=== PATIENT | female | born 1930 | race Caucasian/White ===

== ENCOUNTER 2017-01-06 05:09 | Inpatient (IN) | payer MEDICARE ==
[~2017-01-06] VITALS: Ht 154.9 cm; Wt 75.9 kg
--- NOTE | ~2017-01-06 | CN ---
PATIENT NAME:TREV SPANN MEDICAL RECORD: [id number] : 34 LOCATION:[id number] ADMIT DATE: 01/06/17 ACCOUNT: [id number] CONSULTING PHYSICIAN: JOVANA GRIMM MD REFERRING PHYSICIAN: ROSA M PERALTA MD DATE OF CONSULTATION: 01/07/2017 CONSULT REQUESTING PHYSICIAN: Rosa M Pearlta MD. REASON FOR CONSULTATION: Acute hypoxic respiratory failure, respiratory distress. HISTORY OF PRESENT ILLNESS: Ms. Spann is an 86-year-old female who was admitted yesterday with shortness of breath. The patient was discharged on the 03 of January after myocardial infarction. The patient has Alzheimer disease. The history was taken mainly by reviewing the patient's note and talking to the nursing staff. There is no immediate family member available. Early this morning, the patient becomes more distress which prompted the consult on admission. Her proBNP was 12,920 and she was also mildly hyponatremic with a sodium of 134. REVIEW OF SYSTEMS: Mainly in the history of present illness. PAST MEDICAL HISTORY: 1. Coronary artery with recent myocardial infarction. 2. Parkinson disease. 3. History of normal pressure hydrocephalus, status post SOCIAL MEDIA CAMPAIGN MANAGER shunt placement. 4. Osteoporosis. 5. Fatty liver. 6. Hypertension. 7. History of heart murmur. 8. History of atrial fibrillation. 9. Anxiety and depression. PAST SURGICAL HISTORY: 1. She has abdominal surgery times 3. 2. Breast surgery. 3. Tubal ligation. 4. Hysterectomy. 5. Tonsillectomy. 6. Bladder surgery. ALLERGIES: SHE IS ALLERGIC TO PENICILLIN, CODEINE. PRAVASTATIN AND RIVASTIGMINE. PRESENT MEDICATIONS: [employer] was reviewed. PERSONAL AND SOCIAL HISTORY: The patient is a nonsmoker, nondrinker. FAMILY HISTORY: Noncontributory. PHYSICAL EXAMINATION: GENERAL: Now, the patient is lying comfortably in bed. She is not in acute distress, she is wearing nasal cannula oxygen. VITAL SIGNS: The blood pressure 113/85, pulse is 73, respiration is 24, CONSULT REPORT [id number] TREV SPANN temperature 97.9, and SpO2 is 98% on nasal cannula. HEENT: Conjunctiva is pale. Sclerae nonicteric. NECK: Supple. There is elevated JVD. CHEST: There are bilateral crackles. No wheezing. HEART: Rate and rhythm is regular. There is a grade II/ systolic murmur. ABDOMEN: Soft. Bowel sounds present. No hepatosplenomegaly. RECTAL: Deferred. EXTREMITIES: No cyanosis, no clubbing, no pedal edema. SKIN: Warm, normal turgor. CENTRAL NERVOUS SYSTEM: The patient is awake and alert, but she is confused. LABORATORY DATA: CBC: WBC 16.3, hemoglobin 9.9, hematocrit 30.6, platelet count is 293. Chemistry: Sodium 136, potassium is 4.5, BUN is 42, creatinine is 2, glucose 118, ABG this morning, the pH was 7.20, pCO2 was 72 and pO2 was 243. Chest radiograph, there are bilateral bibasilar infiltrate. IMPRESSION: 1. Acute hypoxic hypercapnic respiratory failure. 2. Respiratory acidosis secondary to acute hypoxic hypercapnic respiratory failure. 3. Bilateral pneumonia, most likely hospital-acquired pneumonia with recent hospitalization. 4. Pulmonary edema with chronic diastolic congestive heart failure. 5. Coronary artery disease with recent myocardial infarction. 6. Parkinson disease. 7. Hypertension. 8. Alzheimer disease. RECOMMENDATION: 1. I will discontinue the Zithromax and start Levaquin, vancomycin and cefepime to cover from Gram-negative rods hospital-acquired pneumonia and MRSA. 2. Follow up labs and chest radiograph. Start on Lasix. 3. BiPAP as required. Continue all other home medications. Dr. Peralta, thank you for involving me in the care of Ms. Spann. Critical care time is 45 minutes. TRANSINT:[id number] Voice Confirmation ID: [id number] DOCUMENT ID: [id number] JOVANA GRIMM MD CC: ROSA M PERALTA MD [id number] DICTATION DATE: 01/07/17 1122 SAND DRIER: 01/07/17 1319 ADM IN [facility] [address] [place] [address]
[~2017-01-06 05:09] MED LIST: AMBIEN5 MG PO; ANTIVERT12.5 MG PO; ATIVAN0.5 MG; ATIVAN0.5 MG PO; BUPROPION XL300 MG PO; CARAFATE1 G PO; CATAPRES TTS-10.1 MG TD; CATAPRES0.1 MG PO; CELEXA10 MG PO; CLARITIN 10 MG10 MG PO; CLEOCIN HCL300 MG PO; COZAAR25 MG PO; DESYREL50 MG PO; DIFLUCAN150 MG PO; DILAUDID2 MG PO; DULCOLAX5 MG PO; DURAGESIC1 PATCH .7 TRANSDERM; FLUTICASONE PRO16 GM NASAL; HYDROCHLOROTH12.5 M1 PO; ISOSORBIDE MONO30 M1 PO; LACTINEX GRANUL1 PCK PO; LIDODERM 5 %1 PATCH TD; LOPRESSOR50 MG PO; LOTRIMIN10 ML TP; MAG-OX 400 MG400 MG PO; MELATONIN 3 MG1 TAB PO; MILK OF MAGNESI30 ML PO; MULTIPLE VITAMI1 TA1 PO; NAPROSYN500 MG PO; NATURAL SENNA8.6 MG PO; NEURONTIN 300300 MG; NORCO 10/325 TA1 TA1 PO; NORVASC10 MG PO; NORVASC5 MG PO; NYSTATIN-TRIAMC15 GM TP; NYSTATIN60 GM TP; PRAVACHOL40 MG PO; PRILOSEC20 MG PO; PROTEIN LIQUID30 ML PO; PROTONIX20 MG PO; PROTONIX40 MG PO; REQUIP0.5 MG PO; SENNA PLUS TA1 UDTAB PO; TUMS500 MG PO; VITAMIN D5000 UNIT PO; VITAMIN D50000 UNIT PO; WELLBUTRIN SR150 MG PO; ZANAFLEX2 M1 PO; ZOFRAN4 MG PO; ZYVOX600 MG
[2017-01-06 05:43] LABS: BASOPHILS 0.1 % (0-2); EOSINOPHILS 0.1 % (0-7); HEMATOCRIT 30.1 % (36.0-48.0); HEMOGLOBIN 9.5 g/dL (12-16); IMMATURE GRANULOCYTES 0.3 % (0-5); LYMPHOCYTES 6.3 % (15-50); MCH 30.6 pg (26.0-34.0); MCHC 31.6 g/dL (31.0-37.0); MCV 97.1 fL (80.0-100.0); MEAN PLATELET VOLUME 9.7 fL (7.4-10.4); MONOCYTES 4.4 % (2-11); NEUTROPHILS 88.8 % (40-80); PLATELET COUNT 272 10x3/uL (130-400); RDW 14.4 % (11.5-14.5); WBC 17.3 10x3/uL (4.8-10.8)
[2017-01-06 05:53] LABS: ALBUMIN 2.7 g/dL (3.4-5.0); BILIRUBIN - TOTAL 0.17 mg/dL (0.2-1.3); CALCIUM 8.5 mg/dL (8.5-10.1); CARBON DIOXIDE 27.9 mmol/L (21.0-32.0); POTASSIUM - SERUM 4.9 mmol/L (3.5-5.1); PROTEIN - SERUM 7.4 g/dL (6.4-8.2)
[2017-01-06 05:55] LABS: TROPONIN-I 0.028 ng/mL (0.000-0.060)
[2017-01-06 05:58] LABS: APPEARANCE CLEAR (CLEAR); BILIRUBIN NEGATIVE (NEGATIVE); COLOR YELLOW (YELLOW); GLUCOSE 50 mg/dL (NEGATIVE); KETONE NEGATIVE (NEGATIVE); LEUKOCYTE ESTERASE NEGATIVE (NEGATIVE); NITRITE NEGATIVE (NEGATIVE); PH 5.5 (5.0-6.0); PROTEIN 3+ mg/dL (NEGATIVE); SPECIFIC GRAVITY 1.015 (1.005-1.020); UROBILINOGEN NORMAL (NORMAL)
[2017-01-06 05:59] LABS: BACTERIA MODERATE /hpf (NONE SEEN); RED CELLS - URINE OCC /hpf (0-5); WHITE CELLS - URINE 0-5 /hpf (0-5)
[2017-01-06 06:00] LABS: AMORPHOUS SEDIMENT >1+ /lpf (NONE SEEN); GRANULAR CAST NONE SEEN /lpf (NONE SEEN); HYALINE CAST NONE SEEN /lpf (NONE SEEN); MUCUS NONE SEEN /lpf (NONE SEEN); RED CELL CAST NONE SEEN /lpf (NONE SEEN); SPERMATOZOA NONE SEEN /hpf (NONE SEEN); WAXY CAST NONE SEEN /lpf (NONE SEEN); YEAST NONE SEEN /hpf (NONE SEEN)
--- NOTE | 2017-01-06 07:00 | NUR ---
RECEIVED PT TO ROOM 2128, VIA STRETCHER, PT ORIENTED TO ROOM AND CALL LIGHT, VERY HARD OF HEARING AND POOR HISTORIAN. WILL ASSESS PT AND START PLAN OF CARE.
[2017-01-06] MEDS ORDERED: ASPIRIN81 MG PO (07:51)
[2017-01-06] MEDS ORDERED: SENNA PLUS TA1 UDTAB PO (07:54)
[2017-01-06] MEDS ORDERED: REMERON15 MG PO (07:55)
[2017-01-06] MEDS ORDERED: ISOSORBIDE MONO30 M1 PO (07:57)
[2017-01-06] MEDS ORDERED: PLAVIX75 MG PO (07:57)
[2017-01-06] MEDS ORDERED: NITRO-DUR0.4 MG TRANSDERM (07:58)
[2017-01-06] MEDS ORDERED: METOPROLOL TART50 MG PO (08:00)
[2017-01-06] MEDS ORDERED: NORVASC10 MG PO (08:01)
[2017-01-06] MEDS ORDERED: AMBIEN5 MG PO (08:04)
[2017-01-06] MEDS ORDERED: MILK OF MAGNESI30 ML PO (08:07)
--- NOTE | 2017-01-06 10:25 | NUR ---
CALLED TO PT'S ROOM, BY LENS MOLD SETTER. PT STATED THAT SHE WAS SOB, AND THAT HER CHEST FELT HEAVY. REPOSITIONED PT WITH HELP OF LENS MOLD SETTER, CHECKED PT'S O2 AND IT WAS 98, ON 2L NC. ALSO DID AND EKG AND IT WAS 90 NORMAL SINUS RHYTHM NON SPECIFIC T WAVE ABNORMALITY. DR. MICHAEL PAGED, WAITING ON HER TO CALL BACK.
[2017-01-06 10:47] VITALS: BP 166/85; BMI 36.9
--- NOTE | 2017-01-06 11:57 | NUR ---
CHECKED ON PT. PT STATED THAT SHE CAN BREATH MUCH BETTER AND THAT HER CHEST DOES NOT FEEL HEAVY ANYMORE. SHE STATED "I AM A LITTLE ANXIOUS TODAY". NAD NOTED, CALL LIGHT IN REACH, WILL CONTINUE TO MONITOR.
[2017-01-06] MEDS ORDERED: ASPIRIN325 MG PO (12:31)
[2017-01-06] MEDS ORDERED: VITAMIN D250000 UNIT PO (12:33)
[2017-01-06] MEDS ORDERED: DIFLUCAN100 MG PO (12:38)
[2017-01-06] MEDS ORDERED: IPRAT-ALBUT 0.5-3 ML UPD (12:39)
[2017-01-06] MEDS ORDERED: FLORANEX / LACT1 TAB PO (12:40)
[2017-01-06] MEDS ORDERED: MYSOLINE 50 MG50 MG PO (12:43)
--- NOTE | 2017-01-06 13:13 | NUR ---
1300- CALLED DR. MICHAEL AND INFOMRED HER OF HIGH BP OF 194/95, AND THAT PT IS VERY ANXIOUS. DR. MICHAEL STATED TO RESTART BP MED AND ANXIETY MED.
[2017-01-06 13:20] VITALS: BP 194/95
--- NOTE | 2017-01-06 14:52 | NUR ---
0830- ASSESED PT AT THIS TIME. TWO NITRO PATCHES NOTED TO RT CHEST AREA, FENTANYL PATCH NOTED TO LT SHOULDER AREA, AND ANOTHER PATCH THAT LOOKS LIKE A NICOTINE PATCH NOTED TO RT SHOULDER AREA. EDEMA NOTED TO UPPER EXTREMITIES. BRUISES BILAT TO ARMS. NAD NOTED, CALL LIGHT IN REACH, NAD NOTED, WILL CONTINUE TO MONITOR.
--- NOTE | 2017-01-06 15:10 | NUR ---
SON AT BEDSIDE, REPOSITIONED PT IN BED, AND PROVIDED HER WITH A FAN. SCD'S ON BILAT, PT AND SON DENY ANY OTHER NEEDS AT THIS TIME. CALL LIGHT IN REACH, NAD NOTED, WILL CONTINUE TO MONITOR.
[2017-01-06 17:16] VITALS: BP 150/81
--- NOTE | 2017-01-06 17:37 | NUR ---
DR. PERALTA STATED TO GO AHEAD AND CHANGE PT'S FENTANYL PATCH NOW INSTEAD OF WAITING UNTIL TOMORROW, SINCE PT IS HAVING A LOT OF PAIN.
[2017-01-06 18:48] LABS: CKMB 1.8 U/L (0.0-3.6); CREATINE KINASE 50 UL (21-215); TROPONIN-I 0.039 ng/mL (0.000-0.060)
--- NOTE | 2017-01-06 19:14 | NUR ---
FENTANYL PATCH APPLIED TO LEFT SHOULDER, DATED AND INITIAL.
--- NOTE | 2017-01-06 19:32 | NUR ---
SHIFT ASSESSMENT COMPLETE. PATIENT RESTLESS AND CONFUSED TELEMETRY READING OF SINUS TACH AT 108 DIAPHORETIC WITH RESPIRATIONS AT 22 AND SHALLOW. O2 AT 3 LITERS IS OFF THE PATIENT FACE O2 SAT OF 80% REAPPLIED WITH RESPIRATORY AT BEDSIDE. BP 200/133 PATIENT IS C/O OF PAIN TO BACK. DURAGESIC PATCH APPLIED NOW WITH 0.1 MG CLONIDINE GIVEN ORAL. WILL MONITOR
[2017-01-06 20:34] VITALS: BP 215/116
[2017-01-06 23:34] VITALS: BP 177/79
[2017-01-07] VITALS (19 sets, daily range): BP systolic 94–161; BP diastolic 46–96; Ht 154.9 cm; Wt 75.9 kg
--- NOTE | 2017-01-07 00:08 | NUR ---
2030 PATINET IS VERY RESTLESS AND ANXIOUS ORAL MEDICATION GIVEN WITH ATIVAN GIVEN ORAL ORDERED.
[2017-01-07 00:50] LABS: CKMB 3.2 U/L (0.0-3.6); CREATINE KINASE 56 UL (21-215)
[2017-01-07 00:59] LABS: TROPONIN-I 0.076 ng/mL (0.000-0.060)
--- NOTE | 2017-01-07 02:32 | NUR ---
PATIENT SLEEPING QUIELTY WITH NO DISTRESS NOTED. VSS NO DISTRESS NOTED
--- NOTE | 2017-01-07 05:15 | NUR ---
PT REC'D TO ROOM 230 ON 14 LITER OXYMIZER, AWAKE AND ALERT, LEFT FOREARM PIV WITH LEVAQUIN INFUSING, RIGHT HAND PIV LEAKING, WILL D/C, GARCIA PATENT DRAINING CONCENTRATED URINE, CM-SR @ 74, BP STABLE, SR UP X 2, CALL LIGHT IN REACH.
--- NOTE | 2017-01-07 05:30 | NUR ---
RT AT BS FOR REPEAT ABG, PT COMPLAINS OF INABILITY TO BREATH, REQUESTING COOL AIR, THERMOSTAT ADJUSTED IN ROOM AND FAN PROVIDED, WILL CONT TO MONITOR FOR CHANGES.
--- NOTE | 2017-01-07 05:45 | NUR ---
PAGED REGARDING CONSULT.
--- NOTE | 2017-01-07 06:10 | NUR ---
NIKKI HINDS AT BS, UPDATE GIVEN AND QUESTIONS ANSWERED.
[2017-01-07 06:21] LABS: BASOPHILS 0.1 % (0-2); EOSINOPHILS 0.1 % (0-7); HEMATOCRIT 30.6 % (36.0-48.0); HEMOGLOBIN 9.9 g/dL (12-16); IMMATURE GRANULOCYTES 0.4 % (0-5); LYMPHOCYTES 6.8 % (15-50); MCH 31.4 pg (26.0-34.0); MCHC 32.4 g/dL (31.0-37.0); MCV 97.1 fL (80.0-100.0); MEAN PLATELET VOLUME 9.5 fL (7.4-10.4); MONOCYTES 5.9 % (2-11); NEUTROPHILS 86.7 % (40-80); PLATELET COUNT 293 10x3/uL (130-400); RBC 3.15 10x6/uL (4.00-5.40); RDW 14.3 % (11.5-14.5); WBC 16.2 10x3/uL (4.8-10.8)
--- NOTE | 2017-01-07 06:35 | NUR ---
PT COMPLAINS OF NAUSEA, 4MG ZOFRAN GIVEN SLOW IVP, FAMILY REMAINS AT BS, VSS, WILL CONT TO MONITOR
[2017-01-07 06:59] LABS: CALCIUM 8.6 mg/dL (8.5-10.1); CARBON DIOXIDE 29.5 mmol/L (21.0-32.0); CHLORIDE - SERUM 98 mmol/L (98-107); CKMB 4.3 U/L (0.0-3.6); CREATINE KINASE 60 UL (21-215); MAGNESIUM - SERUM 2.2 mg/dL (1.8-2.4); POTASSIUM - SERUM 4.5 mmol/L (3.5-5.1); PRO BNP 24717 pg/mL (0-450); SODIUM 136 mmol/L (136-145); UREA NITROGEN 42 mg/dL (7-18); eGFR NON AFRICAN AMERICAN 25 mL/min (90-120)
[2017-01-07 07:00] LABS: CALC OSMOLALITY 283 mosm/kg (275-300); GLUCOSE 118 mg/dL (74-106); TROPONIN-I 0.143 ng/mL (0.000-0.060)
--- NOTE | 2017-01-07 19:30 | NUR ---
ASSESSMENT COMPLETE. S1S2. PT AWAKE AND ALERT. ATTENTION SEEKING; ASKING TO MOVE FAN TOWARDS AND AWAY FROM SELF FREQUENTLY. VERBALLY DISRUPTIVE. NSR SHOWING ON MONITOR. RR DIMINISHED THROUGHOUT. PT C/O CHRONIC BACK PAIN. RADIAL AND PEDAL PULSE WEAK. SKIN PALE. 4L VIA OXYMIZER.
--- NOTE | 2017-01-07 21:00 | NUR ---
NO FAMILY AT VISITATION.
--- NOTE | 2017-01-07 23:45 | NUR ---
LEFT AC INFILTRATED; NOT VIABLE. DC'D WITH CATH INTACT.
[2017-01-08] VITALS (10 sets, daily range): BP systolic 116–148; BP diastolic 67–95
--- NOTE | 2017-01-08 00:10 | NUR ---
ATTEMPTED PIV X3 COULD NOT OBTAIN ACCESS.
--- NOTE | 2017-01-08 02:00 | NUR ---
PT RESTING; EYES CLOSED. VSS. NO DISTRESS NOTED. CALL LIGHT IN REACH. WILL CONTINUE TO MONITOR.
[2017-01-08 04:00] LABS: BASOPHILS 0.1 % (0-2); EOSINOPHILS 0.5 % (0-7); HEMATOCRIT 28.3 % (36.0-48.0); IMMATURE GRANULOCYTES 0.4 % (0-5); LYMPHOCYTES 10.2 % (15-50); MCH 30.7 pg (26.0-34.0); MCHC 31.8 g/dL (31.0-37.0); MCV 96.6 fL (80.0-100.0); MEAN PLATELET VOLUME 9.3 fL (7.4-10.4); MONOCYTES 7.2 % (2-11); NEUTROPHILS 81.6 % (40-80); PLATELET COUNT 261 10x3/uL (130-400); RBC 2.93 10x6/uL (4.00-5.40); RDW 14.1 % (11.5-14.5); WBC 14.6 10x3/uL (4.8-10.8)
[2017-01-08 04:16] LABS: ALBUMIN 2.6 g/dL (3.4-5.0); ANION GAP 13.7 mmol/L (8-16); BILIRUBIN - TOTAL 0.36 mg/dL (0.2-1.3); CALCIUM 8.4 mg/dL (8.5-10.1); CARBON DIOXIDE 28.1 mmol/L (21.0-32.0); CREATININE - SERUM 2.1 mg/dL (0.6-1.3); MAGNESIUM - SERUM 2.3 mg/dL (1.8-2.4); POTASSIUM - SERUM 4.8 mmol/L (3.5-5.1); PROTEIN - SERUM 6.9 g/dL (6.4-8.2)
--- NOTE | 2017-01-08 10:59 | NUR ---
1030-MID LINE PLACED BY VASCULAR NURSE. PT TALAT WELL. SPOKE TO DR UGARTE AND SPOKE TO PT'S SON PRIOR TO THAT AND PT'S SON STATES THAT PT IS A DNR. REC'D ORDER FROM DR UGARTE FOR PT TO BE A DNR.
--- NOTE | 2017-01-08 19:38 | NUR ---
ASSESSMENT COMPLETE, PT SOB, O2 AT 6 LITER VIA OXIMIZER. MIDLINE IV TO LEFT UPPER ARM WITH NS AT KVO. GARCIA DRAINING TO GRAVITY, PT DENIES NEEDS AT THIS TIME, BED LOW, CL IN REACH.
--- NOTE | 2017-01-08 21:46 | NUR ---
PT YELLING OUT, ENTERED ROOM, PT C/O PAIN TO BACK, MORPHINE 2 MG GIVEN TO LEFT FOREARM IV. WILL CONT TO MONITOR.
--- NOTE | 2017-01-08 22:36 | NUR ---
PT ASKING FOR SOMETHING TO HELP HER REST, AMBIEN 5 MG TAB GIVE.
--- NOTE | 2017-01-09 01:28 | NUR ---
RESTING WITH EYES CLOSED, RESPERATIONS EVEN, NO S/S DISTRESS NOTED.
[2017-01-09 03:31] VITALS: BP 136/84
--- NOTE | 2017-01-09 04:00 | NUR ---
HEALTH CLINICIAN AT BEDSIDE FOR VS. NEEDS ADDRESSED AT THIS TIME. CALL LIGHT IN REACH. WILL CONT TO MONITOR.
--- NOTE | 2017-01-09 04:44 | NUR ---
MORPHINE 2 MG GIVEN FOR C/O PAIN TO BACK, RATES PAIN AT A 6 ON PAIN SCALE. REPOSITIONED IN BED TO LEFT SIDE, PLACED PILLOW BEHIND RIGHT SIDE OF BACK. BED LOW, CL IN REACH.
[2017-01-09 05:11] LABS: BASOPHILS 0.1 % (0-2); EOSINOPHILS 0.5 % (0-7); HEMATOCRIT 31.6 % (36.0-48.0); HEMOGLOBIN 10.1 g/dL (12-16); LYMPHOCYTES 20.1 % (15-50); MCV 96.9 fL (80.0-100.0); MEAN PLATELET VOLUME 9.7 fL (7.4-10.4); MONOCYTES 5.4 % (2-11); NEUTROPHILS 72.9 % (40-80); PLATELET COUNT 276 10x3/uL (130-400); RBC 3.26 10x6/uL (4.00-5.40); RDW 14.3 % (11.5-14.5); WBC 14.7 10x3/uL (4.8-10.8)
[2017-01-09 05:33] LABS: ALBUMIN 2.7 g/dL (3.4-5.0); ANION GAP 12.6 mmol/L (8-16); BILIRUBIN - TOTAL 0.4 mg/dL (0.2-1.3); CALCIUM 8.9 mg/dL (8.5-10.1); CARBON DIOXIDE 27.2 mmol/L (21.0-32.0); CREATININE - SERUM 2.3 mg/dL (0.6-1.3); MAGNESIUM - SERUM 2.3 mg/dL (1.8-2.4); POTASSIUM - SERUM 4.8 mmol/L (3.5-5.1); PROTEIN - SERUM 6.6 g/dL (6.4-8.2); VANCOMYCIN - RANDOM 14.3 ug/mL (10.0-20.0)
--- NOTE | 2017-01-09 07:15 | NUR ---
PT SITTING UP IN BED SLEEPING NO S/S DISTRESS RR EVEN AND REGULAR. WILL CONT TO MONITOR
[2017-01-09 08:00] VITALS: BP 127/50
--- NOTE | 2017-01-09 08:13 | NUR ---
PT IS VERY LETHARGIC AND WILL NOT WAKE UP TO TAKE HER AM MEDICATIONS. PT DID OPEN HER EYES BUT WENT RIGHT BACK TO SLEEP.
--- NOTE | 2017-01-09 11:31 | EC ---
PATIENT:TREV AL DATE OF SERVICE: 01/06/17 SEX: F MEDICAL RECORD: [id number] DATE OF : 32 LOCATION:D.M2 D.212 AGE OF PATIENT: 86 ADMISSION DATE: 01/06/17 REFERRING PHYSICIAN: INTERPRETING PHYSICIAN: JAZLYN HERNDON MD ECHOCARDIOGRAM REPORT ECHO CHARGES 5 ECHO LIMITED 1 DOPPLER ECHO COLOR FLOW 2 DOPPLER ECHO PULSE CLINICAL DIAGNOSIS: CHF ECHOCARDIOGRAPHIC MEASUREMENTS (adult normal given) AC root (d.<3.7cm) 0 LV Septum d (<1.2 cm> 0 Valve Excursion 0 LV Septum (systole) 0 Left Atria (s.<4.0cm> 0 LVPW d(<1.2cm) 0 RV (d.<2.3cm) 0 LVPW (sytole) 0 LV diastole(<5.6CM) 0 MV E-F(>70mm/sec) 0 LV systole 0 LVOT Diameter 0 MV exc.(>10mm) 0 Est.ejection fraction (50-75%) 0 Pericardial Effusion N DOPPLER: LVIT 0 A 0 E 0 LA 0 RVSP 54.0 LVOT 0 AOP1/2T 0 Asc. Ao 0 RVOT 0 RA 00 PA 0 AV Gradient Peak 0 AV Mean 0 AV Area 0 MV Gradient Peak 0 MV Mean 0 MV Area 0 COMMENTS: LIMITED STUDY (2-D, COLOR & LIMITED DOPPLER) COMPLETE ECHO DONE ON 12/31/16 Signal System Testing Maintainer: Jazlyn ROSALES Rides Supervisor:1 Dr. Herndon TAPE# PACS DATE OF SERVICE: 01/07/2017 Echocardiogram, Limited FINDINGS: 1. Left ventricle chamber size is within normal limits. Left ventricular systolic function is normal. Overall ejection fraction estimated at 55%. 2. Left atrium, right atrium, and right ventricular chamber sizes are mildly dilated. ECHOCARDIOGRAM REPORT [id number] TREV AL 3. Valvular structures have normal structure and motion. 4. Doppler interrogation reveals moderate mitral regurgitation, moderate tricuspid regurgitation. Pulmonary systolic pressure is estimated 54 mmHg. 5. No evidence of pericardial effusion or left ventricular thrombus. TRANSINT:[id number] Voice Confirmation ID: [id number] DOCUMENT ID: [id number] JAZLYN HERNDON MD at 1131 CC: [id number] DICTATION DATE: 01/08/17 1245 SALES REPRESENTATIVE MEATS: 01/08/17 1635 ADM IN [facility] [address] [place] [id number]
[2017-01-09 12:03] VITALS: BP 129/55
--- NOTE | 2017-01-09 14:39 | NUR ---
TALKED WITH DR PERALTA EARLIER ABOUT PT BEING LETHARGIC. SHE GAVE ORDERS TO LOWER MORPHINE TO 1 MG Q4 HPRN NEEDED FOR PAIN. PT HAS NO EXPRESSED ANY COMPLAINTS OF PAIN TODAY FOR ME DURING MY SHIFT, NOR HAS PT RECEIVED ANYTHING. DR PERALTA THINKS PT BEING LETHARGIC IS R/T HER LOW TOLERANCE FOR PAIN MEDICATION. PT DID ARROUSE EARLIER WHEN THIS AUTHOR AND ELIGIBILITY TECHNICIAN WERE GIVING PT A BATH, GARBLED VOICE, UNABLE TO UNDERSTAND THE WORDS PT WAS SAYING. PT WENT TO SLEEP AGAIN AFTER WE WERE FINISHED. DR PERALTA AWARE. PT SON HAS BEEN HERE TWICE TODAY TO CHECK ON PT. HE ALSO THINKS IT WAS THE PAIN MEDICATION MAKING HER SO SLEEPY. PT HAS NOT DRANK ANYTHING TODAY EITHER, MOUTH SWAB/ORAL CARE WAS GIVEN.
--- NOTE | 2017-01-09 15:07 | NUR ---
Patient Name: TREV AL Admission Status: ER Accout number: [id number] Admission Date: 01-06-2017 : 1930 Admission Diagnosis:PNEUMONIA, UNSPECIFIED ORGANISM Attending: BYRON Current LOS: 3 Anticipated DC Date: Planned Disposition: Primary Insurance: MEDICARE A & B Discharge Planning Comments: CM MET WITH PATIENT IN REGARDS TO DISCHARGE PLANNING/NEEDS. PATIENT WAS C/O HAVING TROUBLES BREATHING, BUT WANTED TO FINISH ASSESSMENT. ALL QUESTIONS WERE ANSWERED IN 1-2 WORDS. OBTAINED HER NURSE TO CHECK HER BREATHING. LIPS ARE BLUISH IN COLOR. PATIENT STATED SHE WANTED TO RETURN TO [facility]. CALL WAS PLACED TO THE FACILITY TO VERIFY BED STATUS AND HAD TO LEAVE A MESSAGE FOR HER TO CALL ME BACK SECONDARY TO BEING IN A MEETING. THE NURSING FACILITY WILL PROVIDE TRANSPORT BACK. SHE HAS A SON, GUZMAN AL, THAT IS LISTED TO CALL IN EMERGENCY. NUMBER ON CHART [phone] (NOT VERIFIED WITH PATIENT SECONDARY TO BREATHING STATUS). CM WILL CONTINUE TO FOLLOW AND ASSIST WITH DISCHARGE NEEDS. Mailing Machine Helper: Gemma Davies Is the patient Alert and Oriented? Yes * How many steps to enter\exit or inside your home? 0 * PCP DR SHARON PERALTA * Pharmacy [facility] * Pread[facility] Environment [facility] * Facility Name [facility] T: [phone] F: [phone] * ADLs Partial Dependent * Partial ADLs (Assistance needed) Ambulation Bathing Dressing Medication Management Toileting Transfers * Equipment Oxygen Shower Chair Wheelchair * List name and contact numbers for known caregivers / representatives who currently or will assist patient after discharge: SONGUZMAN [phone] * Community resources currently utilized None * Additional services required to return to the preadmission environment? No * Can the patient safely return to the preadmission environment? Yes * Has this patient been hospitalized within the prior 30 days at any hospital? Yes
--- NOTE | 2017-01-09 15:24 | NUR ---
PT WOKE UP AND WAS CALLING OUT "CANT BREATH" WENT TO ASSESS PT PT O2 SATS ARE 57% ON 5L OXIMIZER. RESPIRATORY HAD JUST TURNED HER DOWN FROM 7L TO 5L R/T PT BEING AT 100% O2 SAT ON 7L. DAHLIA FROM RESPIRATORY HERE AND CAME TO HELP. TURNED PT BACK UP ALL THE WAY UP TO 15L OXIMIZER STILL 75%. DAHLIA PLACED PT ON NONREBREATHER AT 100% AND PT FINALLY CAME UP TO 92-94%. PT KEEPS C/O UNABLE TO URINATE. PT HAS GARCIA CATHETER THAT IS PLACED. I DID BLADDER SCAN PT TO MAKE SURE PT WAS NOT RETAINING AND 0CC OF URINE IN THE BLADDER. DR PERALTA AWARE OF SITUATIONS ABOVE
[2017-01-09 16:00] VITALS: BP 134/73
--- NOTE | 2017-01-09 18:19 | NUR ---
PT SITTING UP IN BED, STILL LETHARGIC. PT DOES ARROUSE TO TOUCH AND VOICE, SPEECH IS STILL GARBLED. RESPIRATORY PUT PT BACK ON OXIMIZER 12L SATS ARE GOOD.
--- NOTE | 2017-01-09 19:18 | NUR ---
RESUMED CARE OF PT, LYING IN BED WITH EYES CLOSED RESPIRATIONS EVEN AND UNLABORED ON 12 LPM VIA OXYMIZER. FOELY TO GRAVITY. LEFT UPPER ARM INFUSING NS @ 10. SCDS ON. CALL LIGHT IN REACH, WILL CONTINUE TO MONITOR. SEE NURSE ASSESSMENT.
[2017-01-09 20:00] VITALS: BP 150/92
[2017-01-10] VITALS: BP 113/47
--- NOTE | 2017-01-10 00:58 | NUR ---
RECHECK TEMP 90.2 AXILLARY AFTER SHOE SPRAYER REPORTED 92.5 RECTALLY. MICHAEL HUGGER WARMING BLANKET APPLIED. WILL REASSESS SHORTLY.
--- NOTE | 2017-01-10 03:27 | NUR ---
AXILLARY TEMP OF 93.8. WILL CONTINUE TO MONITOR.
--- NOTE | 2017-01-10 03:37 | NUR ---
STAFF INTERPRETER AT BEDSIDE TO OBTAIN VITALS, WILL CONTINUE WITH PLAN OF CARE.
[2017-01-10 04:00] VITALS: BP 95/43
--- NOTE | 2017-01-10 05:04 | NUR ---
INCREASED OXYGEN TO 15LPM VIA OXIMIZER 98% O2 SAT. AXILLARY TEMP OF 94.6. WILL CONTINUE TO MONITOR.
[2017-01-10 05:47] LABS: BASOPHILS 0.1 % (0-2); EOSINOPHILS 0.1 % (0-7); HEMATOCRIT 29.5 % (36.0-48.0); HEMOGLOBIN 9.1 g/dL (12-16); IMMATURE GRANULOCYTES 1.7 % (0-5); LYMPHOCYTES 5.5 % (15-50); MCHC 30.8 g/dL (31.0-37.0); MCV 100.3 fL (80.0-100.0); MEAN PLATELET VOLUME 9.3 fL (7.4-10.4); MONOCYTES 7.5 % (2-11); NEUTROPHILS 85.1 % (40-80); PLATELET COUNT 266 10x3/uL (130-400); RBC 2.94 10x6/uL (4.00-5.40); RDW 14.8 % (11.5-14.5); WBC 10.8 10x3/uL (4.8-10.8)
[2017-01-10 06:11] LABS: ALBUMIN 2.5 g/dL (3.4-5.0); ANION GAP 10.3 mmol/L (8-16); BILIRUBIN - TOTAL 0.49 mg/dL (0.2-1.3); CALCIUM 8.4 mg/dL (8.5-10.1); CARBON DIOXIDE 29.3 mmol/L (21.0-32.0); CREATININE - SERUM 2.4 mg/dL (0.6-1.3); MAGNESIUM - SERUM 2.2 mg/dL (1.8-2.4); PROTEIN - SERUM 6.7 g/dL (6.4-8.2); VANCOMYCIN - RANDOM 20.5 ug/mL (10.0-20.0)
[2017-01-10 06:13] LABS: PHOSPHOROUS 7.6 mg/dL (2.5-4.9); POTASSIUM - SERUM 5.6 mmol/L (3.5-5.1)
--- NOTE | 2017-01-10 06:33 | NUR ---
NO CHANGES FROM PREVIOUS ASSESSMENT, CALL LIGHT IN REACH.
--- NOTE | 2017-01-10 07:23 | NUR ---
PT SITTING UP IN BED SLEEPING. RR EVEN AND UNLABORED. PT ON 15L OXIMIZER. ANGELAER IS ON AND PATENT. WILL CONT TO MONITOR
[2017-01-10 08:00] VITALS: BP 95/37
--- NOTE | 2017-01-10 08:46 | NUR ---
UPON ENTERING PT ROOM FOR MED PASS PT BREATHING IS VERY LABORED. RR 44 BP 84/43 HR 80 TEMP IS 97. PT O2 SAT IS 80%. TURNED PT UP TO FLUSH OXIMIZER DROPPED TO 75%, CALLED RESPIRATORY..PT CAME BACK UP TO 93% RR EASED DOWN TO [address] PERALTA AND LET HER KNOW SITUATION. SHE RECOMMENED HOSPICE AND WANTED ME TO CALL PT FAMILY AND LET THEM KNOW SITUATION AND RECOMMEND HOSPICE TO THEM. CALLED PT SON GUZMAN AND LET HIM KNOW WHAT HAS HAPPENED THROUGHOUT THE NIGHT AND THIS AM. HE IS UNDERSTANDING. RECOMMENDED HOSPICE. GUZMAN ASKED IF HE COULD TAKE HER BACK TO THE [facility] ON HOSPICE. TOLD HIM THAT COULD BE ARRANGED. HE SAID HE WILL BE UP TO SEE PT SOON. WILL CONT TO MONITOR .
--- NOTE | 2017-01-10 09:30 | NUR ---
SON ARRIVES TO BEDSIDE. UPDATE ON PT PROGRESS GIVEN PER AKYLEIGH BREWSTER. RESP. REMAIN AT 42 BREATHS PER MIN, LABORED, WITH USE OF ACCESSORY MUSCLES. TEMP. NOTED TO BE 98 F AXILLARY. BARE HUGGER SETTINGS DECREASED TO LOW.
--- NOTE | 2017-01-10 11:00 | NUR ---
TEMP. 98.9 AXILLARY. BARE HUGGER TURNED OFF AT THIS TIME. RESP. 46BREATHS PER MINUTE, LABORED WITH USE OF ACCESSORY MUSCLES. [facility] UNABLE TO ACCOMMODATE PT MEDICAL NEEDS. SON INFORMED, HE STATES THAT HE WILL GO TO THE REHAB AND BRING HER TO THE HOSPITAL ROOM TO SEE HER.
--- NOTE | 2017-01-10 11:23 | NUR ---
Patient Name: TREV AL Encounter No: [id number] : 1930 Primary Insurance: MEDICARE A & B Anticipated DC Date: 01-10-2017 Planned Disposition: Hospice Medical Facility External Planned Provider: [facility] DCP follow-up note: CM RECEIVED HOSPICE ORDER, SPOKE TO PT'S SON IN PT'S ROOM. PT NOT RESPONDING AT THIS TIME. CM DISCUSSED HOSPICE ORDER, HOSPICE OPTIONS AND LOCATIONS. PT'S SON WOULD LIKE TO TAKE PT BACK TO [place] FOR COMFORT CARE IF POSSIBLE. CM CALLED [facility], , SPOKE TO SIERRA WHO REPORTS THEY CAN DO COMFORT CARE IN THE FACILITY, BUT PT WOULD NEED TO BE ON FOUR AND HALF LITERS OF OXYGEN OR LESS TO RETURN. IF PT IS NOT EXPECTED TO MAKE IT OUT OF THE HOSPITAL, THEY WILL BRING HER FROM THE SKILLED NURSING TO VISIT. PT'S SON WANTS TO CONSIDER [facility] AT [place] IF THE DOCTOR THINKS PT IS NOT GOING TO GET ANY BETTER. PT'S SON REPORTS HE WILL SPEAK TO THE DOCTOR AND NOTIFY CM OF HOSPICE DECISION. CM NOTIFIED BEDSIDE NURSE. CM WAITING ON PT'S SON TO MEET WITH THE DOCTOR TODAY AND NOTIFY CM OF HOSPICE DECISION. Renny Acevedo, CASE MANAGEMENT
--- NOTE | 2017-01-10 11:55 | NUR ---
DR PERALTA CAME TO SEE PT AND TALK WITH FAMILY. THEY WANT RENAL DOC TO ASSESS KIDNEY ISSUE AND TALK WITH HOSPICE BEFORE GOING ANY FURTHER. DR ARSHAD HAS BEEN CONSULTED AND DR PERALTA PERSONALLY TALKED TO HIM ON TELEPHONE. WILL AWAIT DR ARSHAD. FAMILY IS AT BEDSIDE PT IS RUNNING SR 85 ON TELE. RR IS STILL LABORED. 32 BREATHS PER MIN
[2017-01-10 12:00] VITALS: BP 107/49
--- NOTE | 2017-01-10 12:14 | NUR ---
Nutrition follow-up: Diet: ADA mechanical soft PO intake poor due to short of breath Noted hospice order Pt not meeting estimated energy needs with current po intake. RDN will monitor patients progress. If pt not admitted to hospice, will need to consider nutrition support.
--- NOTE | 2017-01-10 12:45 | NUR ---
THIS RN TO ROOM. DAUGHTER IN LAW AT BEDSIDE. RESPIRATIONS 10BREATHS PER MINUTE. FAMILY NOTIFIED OF PT PROGRESS AND ENROUTE TO UNIT. THIS RN REMAINS AT BEDSIDE. NO PULSE OR RESPIRATIONS NOTED AT 1250; ASYTOLE CONFIRMED BY MER, DECK CADET.
--- NOTE | 2017-01-10 12:58 | NUR ---
AND SON ARRIVE TO ROOM AND ASSISTED TO BEDSIDE TO HOLD PT HAND. TISSUES PROVIDED AND FAMILY ASKS FOR PRIVACY AT THIS MOMENT.
--- NOTE | 2017-01-10 13:00 | NUR ---
CALLED DR PERALTA AND LET HER KNOW PT HAS PASSED. SHE IS ON HER WAY TO [place]. HOUSE SUP AWARE.
--- NOTE | 2017-01-10 13:37 | NUR ---
Patient Name: TREV AL Encounter No: [id number] : 1930 Primary Insurance: MEDICARE A & B Anticipated DC Date: 01-10-2017 Planned Disposition: Hospice Medical Facility External Planned Provider: PT PRIOR TO FAMILY DECISION DCP follow-up note: CM SPOKE TO BEDSIDE NURSE WHO ADVISED THAT PT HAD , FAMILY IS IN ROOM. CM RECEIVED CALL FROM PT'S SON TO NOTIFY OF PT'S PASSING. CM OFFERED ASSISTANCE, PT'S SON REPORTS HIS FATHER IS HERE VISITING WITH THEM AND NEED NOTHING AT THIS TIME AND WILL WORK WITH BEDSIDE NURSE ON FINAL ARRANGEMENT. CM NOTIFIED SIERRA AT [facility] OF PT'S PASSING; FACILITY HAD ALREADY BEEN CALLED BY FAMILY. CM TO FOLLOW AND ASSIST IF NECESSARY. Renny Acevedo, CASE MANAGEMENT
--- NOTE | 2017-01-10 14:00 | NUR ---
DR PERALTA PRONOUNCED AT 1345. FAMILY IS HERE. THEY ARE STILL UNDECIDED ON HOME TO USE. THEY WOULD LIKE SOME TIME TO THINK ABOUT IT.
--- NOTE | 2017-01-10 14:30 | NUR ---
INFORMATION ON [facility] PROVIDED TO FAMILY. ASSISTED TO STAND AT BEDSIDE WITH SON OF PATIENT. BEVERAGES PROVIDED. FAMILY STATES, "WE ARE UNSURE STILL ABOUT WHICH HOME WE ARE GOING TO USE AND WE WOULD LIKE TO STAY HERE UNTIL HER GRANDCHILDREN ARRIVE." FAMILY DENIES FURTHER NEEDS AT THIS TIME.
--- NOTE | 2017-01-10 15:49 | NUR ---
PT FAMILY HAS STILL NOT DECIDED ON HOME. FAMILY MEMBERS ARE GATHERED AROUND HER.
--- NOTE | 2017-01-10 16:53 | NUR ---
CONTACTED COIL SHAPER SINCE FAMILY HAS FINALLY DECIDED WITH [facility]. COIL SHAPER GAVE PERMISSION TO RELEASE THE BODY. CALLED [facility] IN [place]. THEY ARE COMING TO SENIOR POWER SCHEDULER THE PT BODY. CALLED [facility] PT IS AN AGE RULEOUT. SERVICE TECHNICIAN AND CASENUMBER ARE LISTED ON RECORD OF . FAMILY HAS DENIED A FURNACE MASON OR PRACTICAL NURSE.
--- NOTE | 2017-01-10 17:15 | NUR ---
GARCIA CATH DISCONTINUED WITH CATH TIP INTACT. 10MLS REMOVED FROM BALLOON. MIDLINE CATH DCD WITH 13CM TIP INTACT. FAMILY REMAINS AT BEDSIDE AWAITING HOME ARRIVAL.
--- NOTE | 2017-01-10 19:02 | NUR ---
CEO & BOARD DIRECTOR IS HERE. CALLED [employer] FOR THEM TO LET CONTROL CHEMIST IN TO RECEIVE PT BODY.
== END 2017-01-10 20:05 | DRG 871 ==
LOC: D.ER 05:09 → D.M2 06:29 → D.ICU 06:29 → D.M2 01-08 12:45
PROVIDERS: Family Medicine; Internal Medicine Pulmonary Disease; ADMIT Family Medicine
PROC: 0T9B70Z Drainage of Bladder with Drainage Device, Via Natural or Artificial Opening (ICD-10-PCS; principal; 2017-01-06)
PROC: 5A09357 Assistance with Respiratory Ventilation, Less than 24 Consecutive Hours, Continuous Positive Airway Pressure (ICD-10-PCS; 2017-01-07)
DX: A41.9 Sepsis, unspecified organism (principal); J96.02 Acute respiratory failure with hypercapnia; J96.01 Acute respiratory failure with hypoxia; J18.9 Pneumonia, unspecified organism; I50.33 Acute on chronic diastolic (congestive) heart failure; E87.1 Hypo-osmolality and hyponatremia; E87.2 Acidosis; I13.0 Hypertensive heart and chronic kidney disease with heart failure and stage 1 through stage 4 chronic kidney disease, or unspecified chronic kidney disease; G91.2 (Idiopathic) normal pressure hydrocephalus; G30.9 Alzheimer's disease, unspecified; F02.80 Dementia in other diseases classified elsewhere, unspecified severity, without behavioral disturbance, psychotic disturbance, mood disturbance, and anxiety; G20 Parkinson's disease; N18.3 Chronic kidney disease, stage 3 (moderate); I25.10 Atherosclerotic heart disease of native coronary artery without angina pectoris; M81.0 Age-related osteoporosis without current pathological fracture; D63.8 Anemia in other chronic diseases classified elsewhere; R26.9 Unspecified abnormalities of gait and mobility; I48.91 Unspecified atrial fibrillation; F41.9 Anxiety disorder, unspecified; F32.9 Major depressive disorder, single episode, unspecified; I34.0 Nonrheumatic mitral (valve) insufficiency; I25.2 Old myocardial infarction